=== PATIENT | male | born 1975 | race Caucasian/White ===

== ENCOUNTER 2018-11-11 08:04 | Day surgery (SDC) | payer OTHER ==
[2018-11-11] MEDS: Lidocaine 1% with EPINEPHrine 1:100,000 50 ML MDV ONE ×2 (08:47→10:33)
[2018-11-11] MEDS: Bupivacaine 0.5% 50 ML MDV ONE ×2 (08:47→10:33)
[2018-11-11] MEDS ORDERED: Dextrose 5%-Lactated Ringers 1,000 ML IV SCH (09:30)
[2018-11-11] MEDS ORDERED: fentaNYL 100 MCG/2 ML SDV ONE (10:13)
[2018-11-11] MEDS ORDERED: Midazolam 1 MG/ML 2 ML SDV ONE ×2 (10:13→10:30)
[2018-11-11] MEDS ORDERED: Propofol 200 MG/20 ML SDV ONE ×2 (10:13)
--- NOTE | 2018-11-12 08:12 | OR ---
DATE OF PROCEDURE: 11/11/2018 PREOPERATIVE DIAGNOSIS: 8 cm occipital subcutaneous mass. POSTOPERATIVE DIAGNOSIS: 5 cm occipital subcutaneous mass, consistent with a lipoma. PROCEDURE: Excision of 5 cm subcutaneous occipital mass. SURGEON: Jose M Mccollum MD ANESTHESIA: IV anesthesia with monitored anesthesia care. INDICATION: This 43-year-old white male has a mass in the subcutaneous tissue of his occipital area. It has been present for at least three years. He was going to have it removed about a year ago, but other things came up preventing it. He now is ready to have it removed. It measures about 8 cm in transverse diameter. I counseled him for excision of this, including risks and alternatives, and he gave his informed consent to proceed. DESCRIPTION OF PROCEDURE: The patient was placed in the left lateral decubitus position, tilted a little forward. His occipital area was prepped and draped in the usual sterile fashion. Some hair was clipped. A time-out was held. Lidocaine 1% with epinephrine in a 50:50 mix with 0.5% Marcaine was infiltrated over the mass. A transverse incision over the mass was made. The underlying mass was then excised using curved Carpenter scissors. The mass was then delivered from the field. It appears to be consistent with a lipoma and has a capsule. The incision was irrigated and suctioned dry. Hemostasis was obtained with electrocautery. The scalp was closed with a running stitch of #0 Prolene with occasional vertical mattress stitches placed to achieve good wound edge approximation. A sterile dressing was applied. He tolerated the procedure well and was taken from the operating room in a good condition. The mass measured 5 cm in diameter once we removed it. Jose M Mccollum MD /[id number] MTDD
== END 2018-11-11 12:17 | disposition home or self-care (01) ==
LOC: JP.SDS 08:04
PROVIDERS: ATTEND Surgery
DX: D17.0 Benign lipomatous neoplasm of skin and subcutaneous tissue of head, face and neck (principal); E11.9 Type 2 diabetes mellitus without complications; E78.5 Hyperlipidemia, unspecified; E66.9 Obesity, unspecified; Z68.38 Body mass index [BMI] 38.0-38.9, adult
CPT/HCPCS: 21012; 82962; 88304; J2250; J2704; J3010; J3490

== ENCOUNTER 2021-03-15 07:16 | Day surgery (SDC) | payer OTHER ==
[~2021-03-15 07:16] MED LIST: Bupivacaine 0.5% 50 ML MDV ONE; Lidocaine 1% with EPINEPHrine 1:100,000 50 ML MDV ONE
[2021-03-15] MEDS ORDERED: Acetaminophen 500 MG Tab PO ONE ×2 (07:30→12:51)
[2021-03-15] MEDS ORDERED: Dexamethasone 4 MG/ML SDV ONE (07:56)
[2021-03-15] MEDS ORDERED: Glycopyrrolate 0.2 MG/ML 5 ML MDV ONE (07:56)
[2021-03-15] MEDS ORDERED: Propofol 200 MG/20 ML SDV ONE ×2 (07:56→10:24)
[2021-03-15] MEDS ORDERED: Ondansetron 4 MG/2 ML SDV ONE (07:56)
[2021-03-15] MEDS ORDERED: fentaNYL 250 MCG/5 ML SDV ONE ×2 (07:56→10:41)
[2021-03-15] MEDS ORDERED: Rocuronium 50 MG/5 ML Vial ONE (07:56)
[2021-03-15] MEDS ORDERED: Neostigmine Methylsulfate 1 MG/ML 5 ML Syringe ONE (07:56)
[2021-03-15] MEDS ORDERED: Succinylcholine 200 MG/10 ML MDV ONE (07:56)
[2021-03-15] MEDS ORDERED: Dextrose 5%-Lactated Ringers 1,000 ML IV SCH (08:00)
[2021-03-15] MEDS ORDERED: ceFAZolin 2 GM in Premix Bag 1 BAG IV ONE (08:15)
[2021-03-15] MEDS ORDERED: Ketorolac 30 MG/ML SDV ONE (11:06)
[2021-03-15] MEDS ORDERED: oxyCODONE 5 MG Tab PO ONE (12:30)
--- NOTE | 2021-03-26 13:10 | OR ---
DATE OF PROCEDURE: 03/15/2021 SURGEON: Syed Anton MD PREOPERATIVE DIAGNOSIS: Large lipoma, right flank. POSTOPERATIVE DIAGNOSIS: Submuscular lipoma, right flank. OPERATIVE PROCEDURE: Excision of large submuscular lipoma, right flank (09231). ANESTHESIA: General. INDICATIONS FOR PROCEDURE: This is a 45-year-old presenting with what appears to be a very large lipoma in the right flank. Clinically, it is probably submuscular as it with the latissimus dorsi muscle overlying it. The plan is to proceed with general anesthetic and excision of the mass. Potential risks including bleeding, infection, possibility of recurrence of the process over time which was notorious for lipoma excision were all gone over, and the patient wishes to proceed. DETAILS OF PROCEDURE: The patient was taken to the operating room and placed in a supine position. After general endotracheal anesthesia was induced, he was converted to a left lateral decubitus position, and the right flank and surrounding areas were prepped and draped. A slightly oblique but primarily transversely-oriented incision was made and carried down through the skin and subcutaneous tissue. The latissimus dorsi muscle was then overlying the mass and this was divided. This allowed dissection under the capsule of the lipoma. This was sequentially dissected free with combination of blunt and cautery dissection, and was removed and what appeared to be an intact manner. This measured 12 cm in diameter and probably 4 to 5 cm with capsule of the lesion. At this point, the wound was inspected and no obvious remaining lipomatous tissue was present. A 10-Setswana Gerhard-Parks drain was then placed through stab wound anterior to the incision and placed into the bed of the incision. The musculature was then approximated with #2 Vicryl stitch, subcutaneous tissue with 3-0 Vicryl stitch, skin with osbaldo, and drain affixed with some 3-0 Vicryl stitch. The patient was taken to the recovery room in satisfactory condition. Syed Anton MD /[id number]
== END 2021-03-15 13:20 | disposition home or self-care (01) ==
LOC: JP.SDS 07:16
PROVIDERS: ATTEND Surgery
DX: D17.1 Benign lipomatous neoplasm of skin and subcutaneous tissue of trunk (principal); E11.9 Type 2 diabetes mellitus without complications; E78.5 Hyperlipidemia, unspecified; G47.33 Obstructive sleep apnea (adult) (pediatric); E66.9 Obesity, unspecified; Z68.37 Body mass index [BMI] 37.0-37.9, adult; Z79.84 Long term (current) use of oral hypoglycemic drugs; Z79.899 Other long term (current) drug therapy
CPT/HCPCS: 21933; 88304; A9270; J0330; J0690; J1100; J1885; J2020; J2405; J2704; J2710; J3010; J3490; J7121

== ENCOUNTER 2025-05-07 11:05 | Emergency (ER) | payer OTHER ==
[2025-05-07] MEDS: Iopamidol 612 MG/ML 100 ML Bottle IV ONE (12:18)
[2025-05-07] MEDS: Sodium Chloride 0.9% 10 ML Syringe FLUSH ONE (12:18)
[2025-05-07 13:21] LABS: BASOPHILS ABSOLUTE AUTO 0.05 K/uL (0.00-0.10); BASOPHILS PERCENT AUTO 0.5 % (0.1-1.3); EOSINOPHILS ABSOLUTE AUTO 0.15 K/uL (0.00-0.40); EOSINOPHILS PERCENT AUTO 1.4 % (0.0-5.4); IMMATURE GRAN ABSOLUTE AUTO 0.04 K/uL (0.00-0.23); IMMATURE GRAN PERCENT AUTO 0.4 % (0.0-0.7); LYMPHOCYTES ABSOLUTE AUTO 1.53 K/uL (0.8-3.3); LYMPHOCYTES PERCENT AUTO 14.3 % (11.4-47.7); MONOCYTES ABSOLUTE AUTO 0.86 K/uL (0.20-0.90); MONOCYTES PERCENT AUTO 8.0 % (3.3-12.6); NEUTROPHILS ABSOLUTE AUTO 8.10 K/uL (1.0-7.6); NEUTROPHILS PERCENT AUTO 75.4 % (40.0-78.1); PLATELET COUNT,PLT 154 K/uL (130-375); RED BLOOD CELL COUNT 5.62 M/uL (4.14-5.76); WHITE BLOOD CELL COUNT,WBC 10.7 K/uL (3.2-11.0)
[2025-05-07 13:41] LABS: BLOOD UREA NITROGEN,BUN 20.0 mg/dL (7-18); CARBON DIOXIDE,CO2 28.0 mmol/L (21-32); CHLORIDE,CL 103.0 mmol/L (100-108); CREATININE 0.9 mg/dL (0.8-1.3); EST CRCL DRUG DOSING (CG) 102.26 mL/min; ESTIMATED GFR 103.0 mL/min (>60); GLUCOSE RANDOM 134.0 mg/dL (74-106); POTASSIUM,K 4.5 mmol/L (3.6-5.2); SODIUM,NA 138.0 mmol/L (140-148)
== END 2025-05-07 14:24 | disposition home or self-care (01) ==
LOC: JP.ED 11:05
DX: K11.20 Sialoadenitis, unspecified (principal); E11.9 Type 2 diabetes mellitus without complications; Z79.82 Long term (current) use of aspirin; Z79.899 Other long term (current) drug therapy
CPT/HCPCS: 36415; 70491; 80048; 85025; 86140; 99284; Q9967